=== PATIENT | male | born 1995 | race Caucasian/White ===

== ENCOUNTER 2019-01-03 15:39 | Day surgery (SDC) | payer OTHER ==
[2019-01-03] MEDS ORDERED: NS(*) 0.9% 1000 ML BAG 1,000 ML IV ONE ×2 (16:05→17:45)
[2019-01-03] MEDS ORDERED: PANTOPRAZOLE SOD 40 MG IV VIAL IVP ONE (16:05)
[2019-01-03] MEDS ORDERED: ONDANSETRON 4 MG/2 ML VIAL IVP ONE (16:15)
--- NOTE | 2019-01-03 16:23 | ER Report ---
History and Physical Time Seen By MD: 15:59 Hx. of Stated Complaint: abd pain and vomiting starting this am, strep test positive at urgent care HPI/ROS CHIEF COMPLAINT: sorethroat, fever, abd pain HISTORY OF PRESENT ILLNESS: Pt started yesterday with sorethroat and some congestion. PT statse that middle of night started with epigastric pain with nausea. PT attempted to eat this am but it caused him to vomit. Pt went to urgent care and was given a liter of NSS and had cbc and cmp . Pt was found to have elevated white count and was sent in for CT of abd and pelvis. Pt states he has been constipated. Has not drank much in two days due to sorethroat. Pt had a fever by touch this am. Pt took tylenol at 3am and 7am. PT feels light headed. no cp or sob. REVIEW OF SYSTEMS: Constitutional: + fever, no chills. Eyes: No discharge. ENT: + sore throat. Cardiovascular: No chest pain, no palpitations. Respiratory: No cough, no shortness of breath. Gastrointestinal: + abdominal pain, + vomiting, + sorethroat Genitourinary: No hematuria. Musculoskeletal: No back pain. Skin: No rashes. Neurological: No headache. Allergies: Coded Allergies: No Known Drug Allergies (Unverified , 01/03/19) Home Meds Active Scripts Tramadol Hcl (TRAMADOL HCL) 50 Mg Tablet, 50 MG PO Q6H PRN for PAIN, #14 TAB Prov:DELIA MARTE 01/03/19 Past Medical/Surgical History Pmhx: depression and suicide attempt at age 18 after fathers , sports induced asthma Pshx: denies Reviewed Nurses Notes: Yes Hx Smoking: No Hx Substance Use Disorder: No Constitutional Vital Sign - Last 24 Hours 01/03/19 01/03/19 01/03/19 01/03/19 15:51 16:00 17:00 17:28 Temp 98.4 Pulse 106 109 113 Resp 18 B/P (MAP) 140/84 134/79 (97) Pulse Ox 99 99 100 O2 Delivery Room Air 01/03/19 01/03/19 01/03/19 01/03/19 17:30 18:00 18:00 18:30 Pulse 105 111 111 109 B/P (MAP) 119/83 (95) 116/76 (89) 116/76 (89) 129/75 (93) Pulse Ox 99 86 86 98 Intake and Output 01/03/19 01/03/19 01/04/19 15:03 23:03 07:03 Intake Total 1000 ml Balance 1000 ml Physical Exam General Appearance: The patient is alert, has no immediate need for airway protection and no signs of toxicity. Eyes: Pupils equal and round no pallor or injection, EOMI ENT: + pharyngeal erythema or exudates, Mucous membranes are moist, TM are nl b/l Respiratory: There are no retractions, lungs are clear to auscultation. Cardiovascular: + tachy. pulses are equal and symmetrical Gastrointestinal: Abdomen is soft with epigastric tenderness, no masses, bowel sounds normal, no guarding, no rigidity or rebound Neurological: Cranial nerves II-XII grossly intact, no sensory or motor loss Skin: Warm and dry, no rashes. Musculoskeletal: Neck is supple non tender, no vertebral tenderness Extremities are nontender, nonswollen and have full range of motion. DIFFERENTIAL DIAGNOSIS: After history and physical exam differential diagnosis was considered for pancreatitis, pud, strep throat, dehydration Medical Decision Making Data Points Laboratory Chemistry Test 01/03/19 16:00 Lactate 2.5 mmol/L (0.7-2.1) Lipase 26 U/L (23-300) Serology Test 01/03/19 16:00 Helicobacter pylori IgG Antibody Negative (NEGATIVE) Group A Streptococcus (PCR) Negative (NEGATIVE) Urinalysis Test 01/03/19 15:41 Urine Color Yellow Urine Clarity Clear Urine pH 8.0 pH (4.8-9.5) Urine Specific Pauline 1.024 Urine Protein 30 mg/dL (NEGATIVE) Urine Glucose (UA) Negative mg/dL (NEGATIVE) Urine Ketones 20 mg/dL (NEGATIVE) Urine Blood Negative (NEGATIVE) Urine Nitrite Negative (NEGATIVE) Urine Bilirubin Negative (NEGATIVE) Urine Urobilinogen 4.0 mg/dL (0.2-1.9) Urine Leukocyte Esterase Negative (NEGATIVE) Urine RBC 1 /HPF (0-2/HPF) Urine WBC <1 /HPF (0-5/HPF) Urine Squamous Epithelial Cells None /LPF (</=FEW) Urine Bacteria Few /HPF (NONE-FEW) Urine Mucus Few /HPF (NONE-FEW) Microbiology Microbiology Date/Time Source Procedure Growth Status 01/03/19 17:22 Blood Blood Culture - Preliminary NO GROWTH AFTER 1 DAY, REINCUBATED Resulted 01/03/19 16:00 Blood Blood Culture - Preliminary NO GROWTH AFTER 1 DAY, REINCUBATED Resulted ED Course/Re-evaluation Clinical Indication for ER IV: Hydration, IV Access ED Course Will add blood culture, lactate, lipase to blood work obtained by urgent care. will also do a strep test. Due to pts pain and white count will obtain abd ct. 01/03/2019 5:45:20 pm PT still tachy after first liter NSS. Pts strep pcr was negative. Pts lactate + and wbc is 25. Pt asking to go home. Pts CT does show possible intussusseption. I spoke with Dr. Marte who is application performance engineer for surgery. Asked me to keep pt in the emergency department and he will come in to see the patient. PT understands I am asking him to stay to speak with Dr. Marte 01/03/2019 5:47:01 pm Signed out to Dr. Domínguez pending surgical evaluation. Decision to Disposition Date: Jan 03, 2019 Decision to Disposition Time: 20:55 Depart Departure Latest Vital Signs Vital Signs Date Time Temp Pulse Resp B/P (MAP) Pulse Ox O2 Delivery O2 Flow Rate FiO2 01/03/19 18:30 109 129/75 (93) 98 01/03/19 15:51 98.4 18 Room Air Impression: Primary Impression: Abdominal pain Condition: Condition Unchanged Disposition: ADMIT FROM ER TO OR New Scripts Tramadol Hcl (TRAMADOL HCL) 50 Mg Tablet 50 MG PO Q6H PRN for PAIN, #14 TAB Prov: DELIA MARTE 01/03/19 Problem Qualifiers Primary Impression: Abdominal pain Abdominal location: epigastric Qualified Codes: R10.13 - Epigastric pain GIORGI DICKSON DO Jan 03, 2019 16:23
[2019-01-03] MEDS ORDERED: IOPAMIDOL 76% 100 ML INFUS BTL 100 ML ONE (16:29)
--- NOTE | 2019-01-03 17:33 | RADIOLOGY IMAGING REPORT ---
FACILITY: PATIENT NAME: Tarun Reis : 1995 MR: [id number] V: [id number] EXAM DATE: ORDERING PHYSICIAN: GIORGI DUMONT TECHNOLOG[place] [facility] [place]un Re[place] : 1995 Visit/Account:[id number] Date of Sevice: 01/03/2019 CT ABDOMEN PELVIS W/ CON HISTORY: Epigastric abdominal pain with fever TECHNIQUE: CT abdomen and pelvis with intravenous contrast. One of the following dose optimization techniques was utilized in the performance of this exam: Autom ated exposure control; adjustment of the mA and/or kV according to the patient's size; or use of an i terative reconstruction technique. Specific details can be referenced in the facility's radiology C T exam operational policy. CONTRAST: None. COMPARISON: None. FINDINGS: Visualized lung bases: There is a 4 mm nodule in the right lower lobe adjacent to the posterior pleu ra. No pleural effusion or consolidation. Hepatobiliary: Negative. Spleen: Negative. Adrenals: Negative. Pancreas: Negative. Kidneys/: Negative. GI: The stomach and proximal small bowel appear unremarkable. There is no large bowel obstruction. Within the left mid abdomen at the level of the kidneys there is an approximately 3 or 4 cm segment of small bowel, likely jejunum, which appears somewhat dilated up to approximately 3.5 cm and contain s some liquid stool and foci of air. On the sagittal reformatted images there appears to be a somewh at targetoid appearance of the segment suggestive of small bowel-small bowel intussusception. The sm all bowel on either side of this dilated segment appears decompressed and early developing small valentin l obstruction is not excluded. No free intraperitoneal air or abscess. The appendix is visualized a nd appears unremarkable. Vessels/spaces/nodes: Negative. Bones/soft tissues: Negative. IMPRESSION: 1. CT findings suggestive of a short segment small bowel-small bowel intussusception in the left mid abdomen, likely involving the jejunum, which contains foci of air and liquid stool. Small bowel on e ither side of this segment appeares decompressed. Surgical consultation may be warrented. 2. Incidental 4 mm nodule in the right lower lobe. See below Fleischner Society recommendations. Above findings were discussed on the phone with Dr. Dumont at approximately 5:10 PM on 01/03/2019. Current Fleischner Society recommendations for incidental pulmonary nodules 4mm (or less) in size (av erage of length and width): - In a patient with low risk for malignancy (i.e., minimal or absent smoking history, no known malig scott or other risk factors): No follow-up necessary. - In a patient at high risk for malignancy (e.g., smoking history and/or other known risk factors): Single [address] If unchanged no further follow-up necessary. (Beatrice H, Hernando JH, Jake G, et al. Guidelines for management of small pulmonary nodules detected on CT scans: a statement from the Fleischner Society. Radiology. 2005; 237: 395-400). Report Dictated By: Greg Patel MD at 01/03/2019 4:56 PM Report E-Signed By: Greg Patel MD at 01/03/2019 5:24 PM WSN:[email or web address]
[2019-01-03] MEDS ORDERED: NORMOSOL R SOLN(*) 1000 ML BAG 1,000 ML IV ONE (18:45)
[2019-01-03] MEDS ORDERED: ceFAZolin(*) 2GM/D5W 50ML 50 ML IVPB ONE (18:45)
[2019-01-03] MEDS ORDERED: ONDANSETRON 4 MG/2 ML VIAL ONE ×2 (18:55→20:14)
[2019-01-03] MEDS ORDERED: fentaNYL CITR 250 MCG/5 ML AMP ONE (18:55)
[2019-01-03] MEDS ORDERED: SUGAMMADEX SOD 200 MG/2 ML SDV ONE ×2 (18:55→20:08)
[2019-01-03] MEDS ORDERED: LIDOCAINE MPF 1% 5 ML VIAL ONE (18:55)
[2019-01-03] MEDS ORDERED: DEXAMETHASONE SOD 4 MG/ML VIAL ONE (18:55)
[2019-01-03] MEDS ORDERED: PROPOFOL EMUL(*) 10MG/ML 20 ML 20 ML ONE (18:55)
[2019-01-03] MEDS ORDERED: KETAMINE HCL 200 MG/20 ML MDV ONE (18:58)
[2019-01-03] MEDS ORDERED: BUPIV/EPI 0.25% 1:200,000 50ML INFIL ONE (19:01)
[2019-01-03] MEDS ORDERED: MIDAZOLAM 2 MG/2 ML VIAL ONE (19:13)
[2019-01-03] MEDS ORDERED: ROCURONIUM BR 10 MG/ML 5 ML SY 5 ML ONE ×2 (19:26→19:31)
[2019-01-03] MEDS ORDERED: DESFLURANE 240 ML BTL INH ONE (19:46)
[2019-01-03] MEDS ORDERED: NS 0.9% IRRIGATION 1000ML PLCT IR ONE (20:29)
[2019-01-03] MEDS ORDERED: traMADol 50 MG TAB PO PRN (20:50)
[2019-01-03] MEDS ORDERED: PROMETHAZINE 25 MG/ML 1 ML AMP IVP PRN (20:50)
[2019-01-03] MEDS ORDERED: HYDROmorphone HCL 2 MG/ML SDV IVP PRN (20:50)
[2019-01-03] MEDS ORDERED: ONDANSETRON 4 MG/2 ML VIAL IVP PRN (20:50)
[2019-01-03] MEDS ORDERED: NS(*) 0.9% 1000 ML BAG 1,000 ML IV SCH (20:50)
--- NOTE | 2019-01-03 20:55 | Post Operative Progress Note ---
Post Operative Progress Note Date: Jan 03, 2019 Time: 20:47 Surgeon: dr. frandy mcfadden #[id number] Endo Tech: none Anesthesia: gen, local dr. dickson Pre-Op Diagnosis: abd pain, vomiting, intussusception Post-Op Diagnosis: abd [id number], vomiting Findings: no intussusception Procedure(s): dx lap Specimen Removed:(May be N/A): none Complications: none Estimated Blood Loss: minimal Date OP Note Dictated: Jan 03, 2019 Time OP Note Dictated: 20:48 DELIA MCFADDEN Jan 03, 2019 20:55
[2019-01-03] MEDS ORDERED: TRAM-420 PO (20:56)
[2019-01-03 21:31] VITALS: BP 122/72
--- NOTE | 2019-01-03 21:41 | OPERATIVE REPORT 1 ---
EVENT DATE: January 03, 2019 SURGEON: Nelson Marte MD ANESTHESIOLOGIST: Regan Davis MD ANESTHESIA: General and local. IRONWORKER FOREMAN: None. PREOPERATIVE DIAGNOSES 1. Abdominal pain. 2. Vomiting. 3. Intussusception. POSTOPERATIVE DIAGNOSES 1. Abdominal pain. 2. Vomiting. 3. Likely due to viral illness. PROCEDURE PERFORMED Diagnostic laparoscopy. FLUIDS IV crystalloid. ESTIMATED BLOOD LOSS Minimal. SPECIMENS None. COMPLICATIONS None. INDICATIONS This is a 23-year-old male with multiple episodes of vomiting as well as abdominal pain. He has a very elevated white blood count, elevated lactic acid. On physical exam, patient's abdomen was soft, but tender in the epigastric region. He was stable. CT scan showed possible intussusception with surrounding bowel collapsed. Risks, benefits, and alternatives were explained. Patient wished to proceed with surgery. Consent was signed. DESCRIPTION OF PROCEDURE Patient was taken to the operating room and placed in the supine position. General anesthesia was administered per anesthesia team. Patient was prepped and draped in the normal sterile fashion. Local analgesia was injected in the dermis above the umbilicus, and a small vertical incision was made. The umbilical stump was grasped and elevated. Veress needle was inserted. A pneumoperitoneum was achieved. Veress needle was removed. A 5 mm port was advanced. After injecting local analgesia under direct vision, two right-sided 5 mm ports were placed, and later in the case, a 5 mm suprapubic port was placed. I inspected the abdomen. There was no injury upon entry. Small intestine was run in its entirety from the ligament of Treitz to the ileocecal valve. There was no intussusception, no mass, and no pathologic dilation. Majority of the colon was inspected, and it was within normal limits. The appendix and gallbladder were within normal limits, as was what was seen of the stomach. Omentum and peritoneum were unremarkable. The liver was unremarkable as well. The two right-sided ports and the supraumbilical were removed under direct vision. Hemostasis was assured. Pneumoperitoneum was relieved. Final port was removed. All skin incisions were closed with 4-0 Monocryl subcuticular stitches. More local analgesia was injected. Appropriate dressings were applied. Patient tolerated the procedure well. There were no complications. [facility]
[2019-01-03 21:48] VITALS: BP 113/67
[2019-01-03 21:52] VITALS: BP 127/79
--- NOTE | 2019-01-03 22:12 | NUR ---
2144 PT PREPARED FOR DISCHARGE: ABD INCISION SITES REMAIN UNCHANGED. PT DENIES ABD PAIN/DISCOMFORT, BOWEL SOUNDS PRESENT THROUGHOUT. NO ABD DISTENTION NOTED. PT UP TO BR. AMB WITHOUT DIFFICULTY 2199 DISCHARGE INSTRUCTIONS REVIEWED WITH PT AND DEEPAK EASLEY. VERBALIZED UNDERSTANDING. COPY OF INSTRUCTIONS GIVEN TO PT. IV DC'D WITH AT INTACT. 2210 PT ESCORTED TO VEHICLE ACC BY DEEPAK EASLEY AND Gunner RN. PT AMB WITHOUT DIFFICULTY. PT DISCHARGE TO HOME IN THE CARE OF DEEPAK EASLEY.
== END 2019-01-03 21:30 | disposition home or self-care (01) ==
LOC: ER 15:45 → OR 18:42
PROVIDERS: ATTEND Surgery
DX: R10.13 Epigastric pain (principal)
CPT/HCPCS: 36415; 49320; 74177; 81001; 83605; 83690; 86677; 87040; 87653; 96361; 96374; 96375; 99284; C9113; J1100; J2001; J2250; J2405; J2704; J3010; J3490; J7030; Q9967; J0690

== ENCOUNTER → 2019-01-03 | Outpatient (REF) | payer OTHER ==
[~2019-01-03] MED LIST: TRAM-420 PO
[2019-01-03 14:24] LABS: PLATELET COUNT, AUTOMATED 383 K/uL (150-450)
== END ==
PROVIDERS: ATTEND Nurse Practitioner Family
DX: R11.10 Vomiting, unspecified (principal)
CPT/HCPCS: 82040; 82247; 82310; 82374; 82435; 82565; 82947; 84075; 84132; 84155; 84295; 84450; 84460; 84520; 85025